=== PATIENT | female | born 1925 | race Caucasian/White ===

== ENCOUNTER 2016-09-10 10:06 | Inpatient (IN) | payer BC ==
[~2016-09-10] VITALS: Ht 152.4 cm; Wt 40.9 kg
[2016-09-10] MEDS ORDERED: LORAZEPAM2 MG PO (10:49)
[2016-09-10] MEDS ORDERED: TRAZODONE50 M1 PO (10:50)
[2016-09-10] MEDS ORDERED: METOPROLOL TART50 MG PO (10:50)
[2016-09-10] MEDS ORDERED: NAMENDA10 M2 PO (10:50)
[2016-09-10] MEDS ORDERED: ZOLOFT50 MG PO (10:51)
[2016-09-10] MEDS ORDERED: LEADER NATUR1000 MCG PO (10:51)
[2016-09-10] MEDS ORDERED: TYLENOL325 M1 PO (10:52)
[2016-09-10] MEDS ORDERED: LOPERAMIDE HCL2 MG PO (10:52)
[2016-09-10] MEDS ORDERED: ANTACID PLUS A PO (10:53)
[2016-09-10] MEDS ORDERED: GOOD NEIGH1200 MG/15 PO (10:54)
[2016-09-10] MEDS ORDERED: BISACODYL10 MG RC (10:55)
[2016-09-10] MEDS ORDERED: PREPARATION H C51 GM TP (10:55)
[2016-09-10] MEDS ORDERED: NAPROXEN375 MG PO (10:55)
[2016-09-10 11:05] LABS: BASOPHIL % 0.3 % (0-2); PLATELET COUNT 223 x10^3mcL (130-400)
[2016-09-10 11:14] LABS: CARBON DIOXIDE 24.7 mmol/L (21-32); CHLORIDE SERUM 104 mmol/L (98-107); CREATININE SERUM 1.1 mg/dL (0.6-1.0); GLUCOSE SERUM 89 mg/dL (74-106); POTASSIUM SERUM 3.9 mmol/L (3.5-5.1); SODIUM SERUM 139 mmol/L (136-145)
[2016-09-10 11:19] LABS: ALBUMIN 3.3 g/dL (3.4-5.0); ALKALINE PHOSPHATASE 85 U/L (46-116); ALT/SGPT 19 U/L (14-59); AST/SGOT 16 U/L (15-37); TOTAL PROTEIN, SERUM 7.1 g/dL (6.4-8.2)
[2016-09-10 13:48] VITALS: BP 174/94
[2016-09-10 13:56] LABS: CHOLESTEROL/HDL RATIO 2.5
[2016-09-10 14:06] LABS: FREE T4 1.03 ng/dL (0.76-1.46); FREE THYROXINE INDEX 2.7 ug/dL (1.4-4.5); MAGNESIUM 1.8 mg/dL (1.8-2.4); PHOSPHOROUS 3.7 mg/dL (2.5-4.9); T4(THYROXINE) 7.3 ug/dL (4.7-13.3)
[2016-09-10 19:24] LABS: T3 TOTAL 1.01 ng/mL
[2016-09-10 20:00] VITALS: BP 148/82
[2016-09-11 04:44] LABS: BASOPHIL % 0.3 % (0-2); PLATELET COUNT 227 x10^3mcL (130-400); RED CELL DISTRIBUTION WIDTH 13.7 % (11.5-14.5)
[2016-09-11 04:48] LABS: CALCIUM 9.1 mg/dL (8.5-10.1); CARBON DIOXIDE 25.5 mmol/L (21-32); CHLORIDE SERUM 105 mmol/L (98-107); CREATININE SERUM 0.9 mg/dL (0.6-1.0); GLUCOSE SERUM 85 mg/dL (74-106); POTASSIUM SERUM 3.5 mmol/L (3.5-5.1); SODIUM SERUM 141 mmol/L (136-145)
[2016-09-11 05:55] VITALS: BP 137/73
[2016-09-11 09:21] VITALS: BP 110/67
[2016-09-11 13:04] LABS: microscopic required? NO
[2016-09-11 13:12] LABS: UA SPECIFIC GRAVITY <=1.005 (1.005-1.035); urine erythrocyte NEGATIVE (NEGATIVE)
[2016-09-11 18:27] VITALS: BP 125/75
[2016-09-11 21:45] VITALS: BP 114/64
[2016-09-12 06:12] LABS: BASOPHIL % 0.5 % (0-2); PLATELET COUNT 192 x10^3mcL (130-400); RED CELL DISTRIBUTION WIDTH 14.1 % (11.5-14.5)
[2016-09-12 06:22] LABS: CALCIUM 8.5 mg/dL (8.5-10.1); CARBON DIOXIDE 22.7 mmol/L (21-32); CHLORIDE SERUM 108 mmol/L (98-107); GLUCOSE SERUM 83 mg/dL (74-106); POTASSIUM SERUM 3.9 mmol/L (3.5-5.1); SODIUM SERUM 143 mmol/L (136-145)
[2016-09-12 06:42] VITALS: BP 115/61
[2016-09-12 10:15] VITALS: BP 143/77
[2016-09-12 13:36] VITALS: BP 117/62
[2016-09-12 22:16] VITALS: BP 113/61
[2016-09-13 06:09] VITALS: BP 136/98
[2016-09-13 06:23] LABS: CALCIUM 8.3 mg/dL (8.5-10.1); CHLORIDE SERUM 108 mmol/L (98-107); CREATININE SERUM 0.9 mg/dL (0.6-1.0); GLUCOSE SERUM 82 mg/dL (74-106); MAGNESIUM 1.8 mg/dL (1.8-2.4); POTASSIUM SERUM 3.9 mmol/L (3.5-5.1); SODIUM SERUM 142 mmol/L (136-145)
[2016-09-13 06:35] LABS: ALBUMIN 2.8 g/dL (3.4-5.0)
[2016-09-13 08:18] VITALS: BP 117/69
[2016-09-13] MEDS ORDERED: ECO81 PO (09:44)
[2016-09-13] MEDS ORDERED: ZES5 PO (09:45)
[2016-09-13] MEDS ORDERED: GOOD SENSE OMEP20 MG PO (09:57)
[2016-09-13] MEDS ORDERED: QUETIAPINE FUMA25 M1 PO ×2 (10:01)
[2016-09-13 14:43] VITALS: BP 117/69
== END 2016-09-13 15:00 | disposition home health service (06) | DRG 391 ==
LOC: ED 10:06 → DU 12:22 → MU 12:22 → DU 13:47 → MU 09-12 07:47
PROVIDERS: Emergency Medicine; ADMIT Family Medicine
DX: K21.9 Gastro-esophageal reflux disease without esophagitis (principal); N17.0 Acute kidney failure with tubular necrosis; E43 Unspecified severe protein-calorie malnutrition; E44.0 Moderate protein-calorie malnutrition; G30.9 Alzheimer's disease, unspecified; F02.80 Dementia in other diseases classified elsewhere, unspecified severity, without behavioral disturbance, psychotic disturbance, mood disturbance, and anxiety; I16.0 Hypertensive urgency; I45.10 Unspecified right bundle-branch block; F41.9 Anxiety disorder, unspecified; E78.5 Hyperlipidemia, unspecified; M85.80 Other specified disorders of bone density and structure, unspecified site; Z86.73 Personal history of transient ischemic attack (TIA), and cerebral infarction without residual deficits
CPT/HCPCS: 83880; 84439; 92610; 97110-GP; 97116-GP; 97530-GP; J2060; J7030; Q0092